=== PATIENT | female | born 1995 | race Caucasian/White ===

== ENCOUNTER 2019-03-08 15:40 | Emergency (ER) | payer OTHER ==
[~2019-03-08] VITALS: Ht 170.2 cm; Wt 86.2 kg
[2019-03-08 15:40] VITALS: BP_SYST 152
--- NOTE | 2019-03-08 15:40 | NUR ---
BROUGHT BACK TO BED #2 AND TRIAGED. REPORT GIVEN TO ANABEL
--- NOTE | 2019-03-08 15:50 | NUR ---
Patient to ER bed 2 to gown for evaluation. Side rails up.
--- NOTE | 2019-03-08 15:51 | NUR ---
Patient is awake, alert, and oriented x4. Patient fell back into a metal stand last night while at work. Patient had nausea last night and today when moving her head too fast, light sensitivity, and headache. Patient reports throbbing headache 8/10, behind right ear is sensitive to touch.
--- NOTE | 2019-03-08 15:51 | NUR ---
Note cedrick in EDM - 03/08/19 at 1554 by LINDSAYEDJOSÉ MIGUEL Patient is awake, alert, and oriented x4. Patient fell back into a metal stand last night while at work. Patient had nausea last night and today when moving her head too fast, light sensitivity, and headache. Patient reports throbbing headache 10/29, behind right ear is sensitive to touch.
--- NOTE | 2019-03-08 16:05 | NUR ---
RAKESH Barakat at bedside examining patient.
[2019-03-08] MEDS ORDERED: IBUPROFEN 600 MG TABLET PO ONE (16:15)
[2019-03-08] MEDS ORDERED: ONDANSETRON 4 MG ODT TAB PO ONE (16:15)
[2019-03-08 16:22] VITALS: BP_SYST 152
--- NOTE | 2019-03-08 16:22 | NUR ---
Patient given written and verbal discharge instructions and verbalizes understanding. ER MD discussed with patient the results and treatment provided. Patient in stable condition. ID arm band removed. Rx of zofran, motrin given. Patient educated on pain management and to follow up with PMD. Pain Scale 0/10. Opportunity for questions provided and answered. Medication side effect fact sheet provided.
== END 2019-03-08 16:22 | disposition home or self-care (01) ==
LOC: SED 15:40
DX: S06.0X0A Concussion without loss of consciousness, initial encounter (principal); W18.39XA Other fall on same level, initial encounter; Y93.89 Activity, other specified; Y92.89 Other specified places as the place of occurrence of the external cause; Y99.8 Other external cause status
CPT/HCPCS: 99283; Q0162